=== PATIENT | female | born 1985 | race Caucasian/White ===

== ENCOUNTER → 2017-11-24 | Day surgery (SDC) | payer SELFPAY ==
[~2017-11-24] VITALS: Ht 167.6 cm; Wt 63.5 kg
[2017-11-24 06:39] LABS: ABSOLUTE BASOPHIL COUNT 0 /CUMM (0.0-0.2); ABSOLUTE EOSINOPHIL COUNT 0 /CUMM (0.0-0.7); ABSOLUTE GRANULOCYTE CT 2.7 /CUMM (1.4-6.5); ABSOLUTE LYMPH COUNT 2.7 /CUMM (1.2-3.4); ABSOLUTE MONOCYTE COUNT 0.6 /CUMM (0.10-0.60); BASOPHIL % 0.7 % (0.0-2.0); EOSINOPHIL % 0.1 % (0-5); GRANULOCYTE % 45.1 % (42.2-75.2); HEMATOCRIT 40.9 % (37-47); MEAN CORPUSCULAR HGB 26.6 PG (27.0-31.0); MEAN CORPUSCULAR HGB CONC 32.9 G/DL (33.0-37.0); MEAN CORPUSCULAR VOLUME 80.9 FL (81.0-99.0); MEAN PLATELET VOLUME 7.4 FL (7.4-10.4); PLATELET COUNT 289 /CUMM (130-400); RBC DISTRIBUTION WIDTH 13.8 % (11.5-14.5); RED BLOOD CELL CT 5.05 /CUMM (4.20-5.40)
--- NOTE | 2017-11-24 09:12 | Operative Report ---
Operative/Inv Procedure Report Surgery Date: 11/24/17 Name of Procedure: Bilateral breast augmentation Pre-Operative Diagnosis: Breast hypoplasia Post-Operative Diagnosis: Same Estimated Blood Loss: scant Surgeon/Umbrella Tipper Hand: Brad Mike MD Anesthesia: laryngeal mask airway Operative/Procedure Note Note: Patient was counseled Flowers procedure the alternatives risks and expected outcomes as relates to request for surgical intervention to treat breast hypoplasia. The patient is requested for 100 mL Walker silicone implant smooth above the muscle through an inframammary incision. She was given a SPS informed consents which she has returned sign and has no questions regarding them today. She was marked in standing position in the inframammary fold. Informed consent was signed. She was taken to the operating placed supine on the table Venodyne boots are placed and then general anesthesia and intravenous antibiotic given. Chest was prepped and draped in usual sterile fashion. Inframammary incision 5 cm was deepened and the subglandular space was identified. He was irrigated multiple times with triple antibiotic and Betadine solution. Local anesthesia was injected in the soft tissues. Once hemostatic and no touch technique was used to place a foreign cc Walker implant. Symmetry was good. Of note sutures were placed prior to placement of the implant. Touch was then turned to the office a similar procedure was performed. 3 layer closure was carried out of the incisions after assessing symmetry in the sitting position. Of note no touch technique was used multiple glove changes surgeon only triple antibiotic
== END ==
LOC: STS 02:41
PROVIDERS: Surgery Plastic and Reconstructive Surgery
DX: Z41.1 Encounter for cosmetic surgery (principal); N64.82 Hypoplasia of breast; Z87.891 Personal history of nicotine dependence
CPT/HCPCS: 36415; 81025; C9399; J0131; J0690; J1580; J2250